=== PATIENT | female | born 1950 | race Caucasian/White ===

== ENCOUNTER 2023-12-11 15:08 | Outpatient (RCR) | payer OTHER, SELFPAY | END 2023-12-11 23:59 | disposition home or self-care (01) | LOC: CRHB 15:08 | PROVIDERS: ATTENDING PHYSICIAN Internal Medicine | DX: Z95.4 Presence of other heart-valve replacement (principal) | CPT/HCPCS: G0422; G0423 ==

== ENCOUNTER → 2023-12-18 12:53 | Outpatient (REF) | payer OTHER, SELFPAY | LOC: DHCBC HW 12:53 | PROVIDERS: ATTENDING PHYSICIAN Internal Medicine; FAMILY PHYSICIAN Physician Assistant Medical | DX: Z95.2 Presence of prosthetic heart valve (principal); I42.8 Other cardiomyopathies; I10 Essential (primary) hypertension; Z98.890 Other specified postprocedural states; I48.0 Paroxysmal atrial fibrillation | CPT/HCPCS: 93306 ==

== ENCOUNTER 2024-01-08 14:59 | Outpatient (RCR) | payer OTHER, SELFPAY | END 2024-01-08 23:59 | disposition home or self-care (01) | LOC: CRHB 14:59 | PROVIDERS: ATTENDING PHYSICIAN Internal Medicine | DX: Z95.4 Presence of other heart-valve replacement (principal) | CPT/HCPCS: G0422; G0423 ==

== ENCOUNTER 2024-02-07 13:18 | Outpatient (RCR) | payer OTHER, SELFPAY | END 2024-02-07 23:59 | disposition home or self-care (01) | LOC: CRHB 13:18 | PROVIDERS: ATTENDING PHYSICIAN Internal Medicine | DX: Z95.4 Presence of other heart-valve replacement (principal) | CPT/HCPCS: G0422; G0423 ==

== ENCOUNTER 2024-02-19 13:56 | Outpatient (RCR) | payer OTHER, SELFPAY | END 2024-02-19 23:59 | disposition home or self-care (01) | LOC: CRHB 13:56 | PROVIDERS: ATTENDING PHYSICIAN Internal Medicine | DX: Z95.4 Presence of other heart-valve replacement (principal) | CPT/HCPCS: G0422; G0423 ==

== ENCOUNTER → 2024-02-21 15:32 | Outpatient (REF) | payer OTHER, SELFPAY | LOC: RCS 15:32 | PROVIDERS: ATTENDING PHYSICIAN Internal Medicine; FAMILY PHYSICIAN Physician Assistant Medical | DX: R06.02 Shortness of breath (principal); R53.83 Other fatigue | CPT/HCPCS: 93308; 93321; 93325 ==

== ENCOUNTER 2024-04-04 15:59 | Emergency (ER) | payer OTHER, SELFPAY ==
[2024-04-04 16:02] VITALS: BP 158/95
--- NOTE | 2024-04-04 16:28 | ED.GENMED ---
History of Present Illness
<Sonia Markham COOPERATIVE MANAGER - Last Filed: 04/05/24 17:30>
General
Chief Complaint: Fever
Source: patient
Exam Limitations: none
Time Seen by Provider: 04/04/24 16:24
Nursing documentation reviewed up to this point in time: agreed with
Travel History
Have you had any contact with someone who has COVID-19?: No
Do you have any symptoms of coronavirus? Fever > 100 degrees, chills, cough, shortness of breath, sore throat, loss of taste or smell, muscle aches, or headache?: No
History of Present Illness
History of Present Illness:
73 yo female w h/o Afib on Eliquis, HTN, HLD, Mitral valve repair and aortic valve replacement 10/2023, TIA, neuropathy, migraines, presents stating she went to Urgent Care yesterday for fever 102.0 and pain under left breast. States CXR showed 'a
shadow' left lower lung and started on Doxycycline for presumptive pneumonia. No lab work done at . Told to go to ER if she felt any worse. Today she felt worse with a short episode of pain on top of left breast as well as the pain under her left
breast.
Patient has had pain across her upper back for 6 weeks, her PCP is aware and told her it was residual from her cardiac surgery done in October. Back pain is unchanged.
Pt denies SOB, abdominal pain. No fever since last night. Took Tylenol today 1:30 p.m.
Past History
<Sonia Markham COOPERATIVE MANAGER - Last Filed: 04/05/24 17:30>
Past History
ED Past Medical History: CHF (Nonischemic cardiomyopathy), CVA (History of TIA), HTN, Hypercholesterolemia, Valvular disease (Moderate to severe aortic insufficiency, severe mitral valve insufficiency.) and Other (Raynaud's disease; osteoarthritis)
ED Past Surgical History: Cardiac (Bioprosthetic aortic valve replacement, mitral valve repair October 15, 2023), and Gynecological
Social History
Tobacco: Non-smoker
Alcohol: None
Drug: None
Personal:
Living: with family
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
Family History
Family History: Other (Noncontributory)
Review of Systems
<Sonia Markham, COOPERATIVE MANAGER - Last Filed: 04/05/24 17:30>
Review of Systems
Allergies reviewed?: Yes
All Other Systems: ROS reviewed and negative except as documented in HPI and ROS
Constitutional: Reports fever (last night, none today)
Respiratory: Denies trouble breathing
Cardiac: Reports chest pain (just under and on top of left breast); Denies diaphoresis, palpitations or syncope
ABD/GI: Denies abdominal pain, nausea, vomiting or diarrhea
: Denies dysuria, frequency, difficulty voiding or urgency
Musculoskeletal: Reports back pain (across upper back 'just above my bra'); Denies edema
Skin: Reports no symptoms
Neurological: Reports no symptoms
Phy Exam
<Sonia Markham, COOPERATIVE MANAGER - Last Filed: 04/05/24 17:30>
Physical Exam
Physical Exam:
GENERAL: No acute distress. A&Ox3.
CONSTITUTIONAL: Afebrile.
EYES: clear, conjunctivae normal
Neck: Supple
ENMT: moist mucus membranes, Pharynx nl
RESPIRATORY: Regular respirations, nonlabored, lungs clear.
CARDIOVASCULAR: Regular rate and rhythm, no murmurs, no rubs.
GI: Soft, nontender, normal BS
MUSCULOSKELETAL: Moves with ease. Well perfused. No edema
SKIN: Warm, dry, pink
PSYCH: Normal mood and affect. Well kept, interactive and appropriate
NEUROLOGIC: Awake, alert and oriented. No focal neurological deficits
Course
<Sonia Markham, COOPERATIVE MANAGER - Last Filed: 04/05/24 17:30>
Orders/Labs/Results
Orders:
Orders
04/04/24 16:06
ECG [Electrocardiogram (*1)] Urgent
Reason for Study: Chest Pain
EKG- Treatment ONCE
04/04/24 17:01
Basic Metabolic Panel Urgent
Complete Blood Count/With Diff Urgent
Troponin I Urgent
04/04/24 17:37
0.9% Sodium Chloride 1000 ml [Nss] 1,000 ml IV BOLUS
04/04/24 17:56
Acetaminophen [Tylenol] 1,000 mg PO NOW STA
04/04/24 18:02
EKG [Electrocardiogram (*1)] Urgent
Reason for Study: Chest Pain
04/04/24 18:03
EKG- Treatment ONCE
04/04/24 18:18
CT Chest Pe Study Urgent
Comment:
Reason For Exam: cp, recent cardiac surgery
Abnormal Lab Results
04/04/24
17:01
Absolute Neuts (auto) 9.2 H 10^3/uL
(1.4-6.5)
Absolute Lymphs (auto) 0.8 L 10^3/uL
(1.2-3.4)
Absolute Monos (auto) 0.7 H 10^3/uL
(0.1-0.6)
Neutrophils % 85.9 H %
(42.2-75.2)
Lymphocytes % 7.3 L %
(20.5-51.1)
BUN 27 H mg/dl
(7-17)
Glucose 108 H mg/dl
(70-99)
Troponin I 0.036 H* ng/ml
04/04/24 17:01
04/04/24 17:01
Vital Signs
Initial and Last Documented VS:
Initial Vital Signs
Temp Pulse Resp BP Pulse Ox
99.4 F 104 20 158/95 98
05/25/24 16:02 04/04/24 16:02 04/04/24 16:02 04/04/24 16:02 04/04/24 16:02
Last Documented Vital Signs
Temp Pulse Resp BP Pulse Ox
99.5 F 92 22 128/82 94
04/04/24 21:26 04/04/24 20:15 04/04/24 20:15 04/04/24 20:00 04/04/24 20:15
Kennel Attendant consulted with Physician
Kennel Attendant consulted with physician?: Yes
Name of Physician Consulted: Elaina
<Sung De La Cruz, DO - Last Filed: 04/04/24 21:01>
Orders/Labs/Results
Orders:
Orders
04/04/24 16:06
ECG [Electrocardiogram (*1)] Urgent
Reason for Study: Chest Pain
EKG- Treatment ONCE
04/04/24 17:01
Basic Metabolic Panel Urgent
Complete Blood Count/With Diff Urgent
Troponin I Urgent
04/04/24 17:37
0.9% Sodium Chloride 1000 ml [Nss] 1,000 ml IV BOLUS
04/04/24 17:56
Acetaminophen [Tylenol] 1,000 mg PO NOW STA
04/04/24 18:02
EKG [Electrocardiogram (*1)] Urgent
Reason for Study: Chest Pain
04/04/24 18:03
EKG- Treatment ONCE
04/04/24 18:18
CT Chest Pe Study Urgent
Comment:
Reason For Exam: cp, recent cardiac surgery
Abnormal Lab Results
04/04/24
17:01
Absolute Neuts (auto) 9.2 H 10^3/uL
(1.4-6.5)
Absolute Lymphs (auto) 0.8 L 10^3/uL
(1.2-3.4)
Absolute Monos (auto) 0.7 H 10^3/uL
(0.1-0.6)
Neutrophils % 85.9 H %
(42.2-75.2)
Lymphocytes % 7.3 L %
(20.5-51.1)
BUN 27 H mg/dl
(7-17)
Glucose 108 H mg/dl
(70-99)
Troponin I 0.036 H* ng/ml
04/04/24 17:01
04/04/24 17:01
Vital Signs
Initial and Last Documented VS:
Initial Vital Signs
Temp Pulse Resp BP Pulse Ox
99.4 F 104 20 158/95 98
04/04/24 16:02 04/04/24 16:02 04/04/24 16:02 04/04/24 16:02 04/04/24 16:02
Last Documented Vital Signs
Temp Pulse Resp BP Pulse Ox
99.5 F 92 22 128/82 94
04/04/24 21:26 04/04/24 20:15 04/04/24 20:15 04/04/24 20:00 04/04/24 20:15
<Sonia Markham COOPERATIVE MANAGER - Last Filed: 04/05/24 17:30>
MDM/Problems Addressed
Differential Diagnosis Includes:
FL, post op/musculoskeletal pain, PNA, costochondritis, pleuritis
MDM/Problems Addressed:
73 yo female w h/o Afib on Eliquis, HTN, HLD, Mitral valve repair and aortic valve replacement 10/2023, TIA, neuropathy, migraines, presents stating she went to Urgent Care yesterday for fever 102.0 and pain under left breast. States CXR showed 'a
shadow' left lower lung and started on Doxycycline for presumptive pneumonia. No lab work done at . Told to go to ER if she felt any worse. Today she felt worse with a short episode of pain on top of left breast as well as the pain under her left
breast.
Patient has had pain across her upper back for 6 weeks, her PCP is aware and told her it was residual from her cardiac surgery done in October. Back pain is unchanged.
Pt denies SOB, abdominal pain. No fever since last night. Took Tylenol today 1:30 p.m.
Afebrile, NAD
EKG: Sinus rhythm with occasional PVC
Reviewed radiology report from CXR yesterday: IMPRESSION:
Mild left basilar subsegmental atelectasis and/or scarring and possible tiny left pleural effusion.
5:45 p.m.
CBC no clinically significant abnormality
CMP: BUN 27 otherwise normal IVF's ordered for mild dehydration
Troponin:0.036 minimally elevated
Pain is reproducible with palpation, she jumps and winces intermittently and grabs her left breast area due to pain, most likely musculoskeletal pain/pleuritic pain. Tylenol ordered as she states it helped the pain earlier
Plan: Repeat CXR, repeat Troponin
6:10 p.m.
Pt states left breast, chest pain is worse, her Tylenol has worn off. Tylenol ordered as she states it helped the pain earlier
Repeat EKG: Sinus tachycardia rate 102
Plan: Continue Doxycycline and other meds.
Has f/u appointment with cardiology in 5 days.
Tylenol as needed for pain.
Case reviewed with Dr. De La Cruz who will assume care from this point
<Sonia Markham NP - Last Filed: 04/05/24 17:30>
*EKG
EKG Intrepretation Date: 04/04/24
Interpretation: abnormal
Rate: normal
Rhythm: sinus and PVC's
Waldo: normal axis
Interval: normal interval
QRS Pattern: normal QRS
Ischemia: no ischemia
*Critical Care Note
Total Time (30-74mins, 75-104mins- exclusive of procedures): Not Applicable
ED Attending Note
<Sonia Markham NP - Last Filed: 04/05/24 17:30>
-
Portions of this chart may have been created with voice recognition software.� Occasional wrong word or��sound alike� substitutions may have occurred due to the inherent limitations of voice recognition software.
<Sung De La Cruz DO - Last Filed: 04/04/24 21:01>
ED Attending Note
Patient seen and examined by attending physician: Yes
I performed the substantive portion of visit, reviewed & personally made and approve the management plan that is documented in note by myself or LOUISE.: Yes
ED Attending Note:
73-year-old female with history of valve replacement and repair who presents with left-sided pleuritic pain. CT shows no PE. Is on Eliquis. There is a small effusion and atelectasis. Will trial incentive spirometry. Already on antibiotics which
I will advise her to continue and finish. Outpatient follow-up recommended. Suspect her pain is related to atelectasis and effusion
Discharge Plan
Departure
Patient Disposition: Home (Routine Discharge)
Date of Disposition: 04/04/24
Time of Disposition: 20:58
Patient with high blood pressure during this ER visit?: No
Discharge Problem:
Pleural effusion, Pleuritic chest pain
Instructions: Pleural effusion, Pleuritic Chest Pain (DC)
Prescriptions:
No Action
Centrum Silver 1 EACH tablet
1 ea PO DAILY
turmeric root extract 500 MG capsule
1,000 mg PO DAILY
ezetimibe [Zetia] 10 mg tablet
10 mg PO QPM
Eliquis 5 mg tablet
5 mg PO BID Qty: 60 1RF
cyanocobalamin (vitamin B-12) 1,000 mcg Tablet
1,000 mcg PO DAILY
acetaminophen [Tylenol Extra Strength] 500 mg Tablet
1,000 mg PO Q6HPRN PRN (Reason: mild pain)
gabapentin 100 mg Capsule
100 mg PO HS
doxycycline hyclate 100 mg Tablet
100 mg PO BID
Referrals:
Rik Apple PA-C [Family Provider] -
Activity Restrictions/Additional Instructions:
Please see your doctor in the next 3 to 5 days for follow-up and reevaluation
Return to [facility] for shortness of breath, fevers, vomiting or worsening symptoms.
Interventions
Interventions:
*Risk Screen - Suicide Last Done: 04/04/24 21:27
*General Assessment Last Done: 04/04/24 21:27
*Neglect/Abuse Screening Last Done: 04/04/24 21:27
*ED COVID-19 Vaccine History Last Done: 04/04/24 21:27
*Nursing Disposition Last Done: 04/04/24 22:23
ED- Neurological Assessment Last Done: 04/04/24 16:37
ED-Skin Assessment Last Done: 04/04/24 16:37
Discharge Date and Time
Discharge Date/Time: 04/04/24 22:27
Print Language: GREENLANDIC
[2024-04-04 17:07] LABS: % Basophils 0.3 % (0-2); % Eosinophils 0.1 % (0-6); % Immature Granulocytes 0.2 % (0-0.5); % Lymphocytes 7.3 % (20.5-51.1); % Monocytes 6.2 % (1.7-9.3); % Neutrophils 85.9 % (42.2-75.2); Absolute Lymphocytes 0.8 10^3/uL (1.2-3.4); Absolute Monocytes 0.7 10^3/uL (0.1-0.6); Absolute Neutrophils 9.2 10^3/uL (1.4-6.5); Mean Corp Hgb Conc. 34.2 g/dL (33.0-37.0); Mean Corpuscular Hgb 29.8 pg (27.0-31.0); Mean Corpuscular Volume 87.2 fL (81.0-99.0); Nucleated Red Blood Cells % 0 %; Platelet Count 203 10^3/uL (130-400); Red Blood Cell Count 4.36 10^6/uL (4.20-5.40); Red Cell Dist. Width 13.7 % (11.5-14.5); White Blood Cell Count 10.7 10^3/uL (4.8-10.8)
[2024-04-04 17:21] LABS: Blood Urea Nitrogen 27 mg/dl (7-17); Calcium 9.4 mg/dl (8.4-10.2); Carbon Dioxide 23 mmol/L (22-30); Chloride 104 mmol/L (98-107); Glucose 108 mg/dl (70-99); Sodium 136 mmol/L (135-145); eGFR > 60.00
[2024-04-04 17:48] LABS: Troponin I 0.036 ng/ml
[2024-04-04] MEDS: NSS 1000 IV (17:52)
[2024-04-04] MEDS: TYLENOL 1000 MG PO (17:59)
[2024-04-04 18:53] VITALS: BP 146/89
[2024-04-04 19:01] VITALS: BP 143/92
[2024-04-04 20:00] VITALS: BP 128/82
== END 2024-04-04 22:27 | disposition home or self-care (01) ==
LOC: EMR 15:59
PROVIDERS: Registered Nurse; EMERGENCY PHYSICIAN Emergency Medicine; FAMILY PHYSICIAN Physician Assistant Medical
DX: J90 Pleural effusion, not elsewhere classified (principal); R07.81 Pleurodynia; R50.9 Fever, unspecified; I11.0 Hypertensive heart disease with heart failure; I50.9 Heart failure, unspecified; E78.00 Pure hypercholesterolemia, unspecified; I49.3 Ventricular premature depolarization; I73.00 Raynaud's syndrome without gangrene; M19.90 Unspecified osteoarthritis, unspecified site; Z79.01 Long term (current) use of anticoagulants; Z86.73 Personal history of transient ischemic attack (TIA), and cerebral infarction without residual deficits; Z95.3 Presence of xenogenic heart valve
CPT/HCPCS: 99284; 96360; 71275; 80048; 84484; 85025; 93005; Q9967

== ENCOUNTER → 2024-04-24 10:00 | Outpatient (REF) | payer OTHER, SELFPAY | LOC: RAD 10:00 | PROVIDERS: ATTENDING PHYSICIAN Physician Assistant Medical; REFERRING PHYSICIAN Internal Medicine | DX: I38 Endocarditis, valve unspecified (principal); J18.9 Pneumonia, unspecified organism | CPT/HCPCS: 71046 ==

== ENCOUNTER 2024-04-27 14:11 | Emergency (ER) | payer OTHER, SELFPAY ==
[2024-04-27 14:14] VITALS: BP 154/100
[2024-04-27 15:44] VITALS: BP 149/91
[2024-04-27] MEDS: TYLENOL 1000 MG PO (15:56)
[2024-04-27 16:00] VITALS: BP 139/89
[2024-04-27 16:05] LABS: % Basophils 0.4 % (0-2); % Eosinophils 0.1 % (0-6); % Immature Granulocytes 0.3 % (0-0.5); % Monocytes 6.5 % (1.7-9.3); % Neutrophils 82.7 % (42.2-75.2); Absolute Lymphocytes 1.1 10^3/uL (1.2-3.4); Absolute Monocytes 0.7 10^3/uL (0.1-0.6); Absolute Neutrophils 8.6 10^3/uL (1.4-6.5); Hemoglobin 12.8 g/dL (12.0-16.0); Mean Corp Hgb Conc. 34.6 g/dL (33.0-37.0); Mean Corpuscular Hgb 30.4 pg (27.0-31.0); Mean Corpuscular Volume 87.9 fL (81.0-99.0); Mean Platelet Volume 10.1 fL (7.4-10.4); Nucleated Red Blood Cells % 0 %; Platelet Count 156 10^3/uL (130-400); Red Blood Cell Count 4.21 10^6/uL (4.20-5.40); Red Cell Dist. Width 14.2 % (11.5-14.5); White Blood Cell Count 10.5 10^3/uL (4.8-10.8)
[2024-04-27 16:18] LABS: ALT (SGPT) 35 U/L (0-35); AST (SGOT) 38 U/L (14-36); Albumin 3.8 g/dl (3.5-5.0); Alkaline Phosphatase 84 U/L (38-126); Blood Urea Nitrogen 19 mg/dl (7-17); Calcium 9.4 mg/dl (8.4-10.2); Carbon Dioxide 24 mmol/L (22-30); Chloride 102 mmol/L (98-107); Glucose 105 mg/dl (70-99); Potassium 4.6 mmol/L (3.5-5.1); Sodium 135 mmol/L (135-145); Total Bilirubin 0.9 mg/dl (0.2-1.3); Total Protein 6.7 g/dl (6.3-8.2); eGFR > 60.00
[2024-04-27] MEDS: ZITHROMAX 500 MG PO (17:44)
[2024-04-27 17:45] VITALS: BP 116/82
--- NOTE | 2024-04-27 21:31 | ED.GENMED ---
History of Present Illness
General
Chief Complaint: Cold/Flu/URI Symptoms
Source: patient
Exam Limitations: none
Time Seen by Provider: 04/27/24 14:52
Nursing documentation reviewed up to this point in time: agreed with
Travel History
Have you had any contact with someone who has COVID-19?: Yes
Comment: positive
Do you have any symptoms of coronavirus? Fever > 100 degrees, chills, cough, shortness of breath, sore throat, loss of taste or smell, muscle aches, or headache?: Yes
Symptoms:: positive
History of Present Illness
History of Present Illness:
Patient was seen by PCP today for fever, fatigue. She tested COVID pos in office and was advised to come to ED. On arrival she is awake and alert, in no distress.
Past History
Past History
ED Past Medical History: CHF (Nonischemic cardiomyopathy), CVA (History of TIA), HTN, Hypercholesterolemia, Valvular disease (Moderate to severe aortic insufficiency, severe mitral valve insufficiency.) and Other (Raynaud's disease; osteoarthritis)
ED Past Surgical History: Cardiac (Bioprosthetic aortic valve replacement, mitral valve repair October 15, 2023), and Gynecological
Social History
Tobacco: Non-smoker
Alcohol: None
Drug: None
Personal:
Living: with family
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
Family History
Family History: Other (Noncontributory)
Review of Systems
Review of Systems
Allergies reviewed?: Yes
All Other Systems: ROS reviewed and negative except as documented in HPI and ROS
Constitutional: Reports fever and fatigue
EENT: Reports no symptoms
Respiratory: Reports no symptoms
Cardiac: Reports no symptoms
ABD/GI: Reports no symptoms
: Reports no symptoms
Musculoskeletal: Reports no symptoms
Skin: Reports no symptoms
Neurological: Reports no symptoms
Psychiatric: Reports no symptoms
Phy Exam
General Physical Exam
General Presentation: well appearing and no apparent distress
General age: appears stated age
General Skin: warm and dry
General Habitus: normal
General Mental: alert
General Hydration: appears well hydrated
Cardiovascular Exam
Cardiovascular Exam: regular rate/rhythm and no edema
Pulmonary Exam
Pulmonary Exam: lungs clear and no respiratory distress
Gastrointestinal Exam
Gastrointestinal Exam: normal bowel sounds, non tender, soft and no organomegaly
Neurological Exam
Neurological Exam: alert, oriented x3, CN II-XII intact, no motor deficits, no sensory deficits, speech normal and normal gait
Musculoskeletal Exam
Musculoskeletal Exam: full ROM and neuro vasc intact
Skin Exam
Skin Exam: normal color, warm/dry and no rash
Psychiatric Exam
Psychiatric Exam: normal mood/affect
Course
Orders/Labs/Results
Orders:
Orders
04/27/24 15:46
Acetaminophen [Tylenol] 1,000 mg PO NOW STA
04/27/24 15:47
Chest [CR Chest - 2 Views ] Urgent
Comment: covid +
Reason For Exam: cough
04/27/24 15:56
CBC/With Diff [Complete Blood Count/With Diff] Urgent
CMP [Comprehensive Metabolic Panel] Urgent
04/27/24 15:58
EKG [Electrocardiogram (*1)] Urgent
Reason for Study: Tachycardia
04/27/24 15:59
EKG- Treatment ONCE
04/27/24 17:27
Azithromycin [Zithromax] 500 mg PO NOW STA
Abnormal Lab Results
04/27/24
15:56
Absolute Neuts (auto) 8.6 H 10^3/uL
(1.4-6.5)
Absolute Lymphs (auto) 1.1 L 10^3/uL
(1.2-3.4)
Absolute Monos (auto) 0.7 H 10^3/uL
(0.1-0.6)
Neutrophils % 82.7 H %
(42.2-75.2)
Lymphocytes % 10.0 L %
(20.5-51.1)
BUN 19 H mg/dl
(7-17)
Glucose 105 H mg/dl
(70-99)
AST 38 H U/L
(14-36)
04/27/24 15:56
04/27/24 15:56
Vital Signs
Initial and Last Documented VS:
Initial Vital Signs
Temp Pulse Resp BP Pulse Ox
101.5 F H 104 18 154/100 98
04/27/24 14:14 04/27/24 14:14 04/27/24 14:14 04/27/24 14:14 04/27/24 14:14
Last Documented Vital Signs
Temp Pulse Resp BP Pulse Ox
101.5 F H 104 18 116/82 95
04/27/24 14:14 04/27/24 14:14 04/27/24 14:14 04/27/24 17:45 04/27/24 16:12
*Radiology
Radiology exam reviewed: radiology read reviewed
*Pulse Oximetry
Patient hypoxic: no
*Critical Care Note
Total Time (30-74mins, 75-104mins- exclusive of procedures): Not Applicable
Update Note
Update Note:
Patient remains awake and alert, nontoxic appearing. Pulse ox 96% on RA. No SOb or cough. No episodes of hypotension in ED. Eating and drinking. CXR with small pneumonial vs effusion with atelectasis. WIll place on Azithromycin, first dose
given in dept. SHe is discharged home, to follow closely with PCP. Given instructions on s/s to return to ED and she is agreeable to plan.
ED Attending Note
-
Portions of this chart may have been created with voice recognition software.� Occasional wrong word or��sound alike� substitutions may have occurred due to the inherent limitations of voice recognition software.
Discharge Plan
Departure
Patient Disposition: Home (Routine Discharge)
Date of Disposition: 04/27/24
Time of Disposition: 17:18
Patient with high blood pressure during this ER visit?: No
Condition: Good
Covid-19: Not Applicable
Discharge Problem:
COVID-19
Instructions: Fever, Adult (DC), Atypical Pneumonia (Mycoplasma and Viral) (DC), Coronavirus Home Quarantine
Prescriptions:
New
azithromycin [Zithromax] 250 mg tablet
250 mg PO DAILY Qty: 4 0RF
No Action
Centrum Silver 1 EACH tablet
1 ea PO DAILY
turmeric root extract 500 MG capsule
1,000 mg PO DAILY
ezetimibe [Zetia] 10 mg tablet
10 mg PO QPM
Eliquis 5 mg tablet
5 mg PO BID Qty: 60 1RF
cyanocobalamin (vitamin B-12) 1,000 mcg Tablet
1,000 mcg PO DAILY
acetaminophen [Tylenol Extra Strength] 500 mg Tablet
1,000 mg PO Q6HPRN PRN (Reason: mild pain)
gabapentin 100 mg Capsule
100 mg PO HS
doxycycline hyclate 100 mg Tablet
100 mg PO BID
Referrals:
Manuel Santoyo MD [Family Provider] - Follow up in 2-3 days
Interventions
Interventions:
*Risk Screen - Suicide Last Done: 04/27/24 14:14
*General Assessment Last Done: 04/27/24 14:14
*Neglect/Abuse Screening Last Done: 04/27/24 14:14
ED- Fall Risk Assessment Last Done: 04/27/24 15:57
*ED COVID-19 Vaccine History Last Done: 04/27/24 14:14
*Nursing Disposition Last Done: 04/27/24 18:00
ED- Pulmonary Assessment Last Done: 04/27/24 15:57
Discharge Date and Time
Discharge Date/Time: 04/27/24 18:38
Print Language: CENTRAL [place]
== END 2024-04-27 18:38 | disposition home or self-care (01) ==
LOC: EMR 14:11
PROVIDERS: Nurse Practitioner; EMERGENCY PHYSICIAN Emergency Medicine; FAMILY PHYSICIAN Family Medicine
DX: U07.1 COVID-19 (principal); I42.8 Other cardiomyopathies; I10 Essential (primary) hypertension; E78.00 Pure hypercholesterolemia, unspecified; I08.0 Rheumatic disorders of both mitral and aortic valves; I73.00 Raynaud's syndrome without gangrene; M19.90 Unspecified osteoarthritis, unspecified site; G43.909 Migraine, unspecified, not intractable, without status migrainosus; I48.91 Unspecified atrial fibrillation; Z79.01 Long term (current) use of anticoagulants; Z95.3 Presence of xenogenic heart valve; Z86.73 Personal history of transient ischemic attack (TIA), and cerebral infarction without residual deficits; Z87.01 Personal history of pneumonia (recurrent); Z88.8 Allergy status to other drugs, medicaments and biological substances
CPT/HCPCS: 99283; 71046; 80053; 85025; 93005

== ENCOUNTER → 2024-06-09 10:11 | Outpatient (REF) | payer OTHER, SELFPAY | LOC: RAD 10:11 | PROVIDERS: ATTENDING PHYSICIAN Nurse Practitioner Family; FAMILY PHYSICIAN Physician Assistant Medical | DX: Z87.01 Personal history of pneumonia (recurrent) (principal); J90 Pleural effusion, not elsewhere classified | CPT/HCPCS: 71046 ==

== ENCOUNTER → 2024-09-29 07:20 | Outpatient (REF) | payer OTHER, SELFPAY | LOC: HWRCS 07:20 | PROVIDERS: ATTENDING PHYSICIAN Nurse Practitioner; FAMILY PHYSICIAN Physician Assistant Medical | DX: Z95.2 Presence of prosthetic heart valve (principal); I42.8 Other cardiomyopathies; I10 Essential (primary) hypertension; Z98.890 Other specified postprocedural states; R06.02 Shortness of breath; I95.89 Other hypotension; I48.0 Paroxysmal atrial fibrillation | CPT/HCPCS: 71046; 93306 ==

== ENCOUNTER 2024-12-08 08:22 | Outpatient (RCR) | payer OTHER, SELFPAY | END 2024-12-08 23:59 | disposition home or self-care (01) | LOC: RPT 08:22 | PROVIDERS: ATTENDING PHYSICIAN Physician Assistant Medical | DX: I95.9 Hypotension, unspecified (principal); R53.81 Other malaise; Z73.6 Limitation of activities due to disability; M62.81 Muscle weakness (generalized); R26.89 Other abnormalities of gait and mobility; R25.1 Tremor, unspecified; Z86.16 Personal history of COVID-19; Z86.73 Personal history of transient ischemic attack (TIA), and cerebral infarction without residual deficits | CPT/HCPCS: 97110; 97161 ==

== ENCOUNTER 2025-01-07 14:01 | Outpatient (RCR) | payer OTHER, SELFPAY | END 2025-01-07 23:59 | disposition home or self-care (01) | LOC: RPT 14:01 | PROVIDERS: ATTENDING PHYSICIAN Physician Assistant Medical | DX: I95.9 Hypotension, unspecified (principal); R53.81 Other malaise; Z73.6 Limitation of activities due to disability; M62.81 Muscle weakness (generalized); R26.89 Other abnormalities of gait and mobility; R26.2 Difficulty in walking, not elsewhere classified; R25.1 Tremor, unspecified; Z86.16 Personal history of COVID-19; Z86.73 Personal history of transient ischemic attack (TIA), and cerebral infarction without residual deficits | CPT/HCPCS: 97110; 97112; 97530 ==

== ENCOUNTER 2025-02-04 13:51 | Outpatient (RCR) | payer OTHER, SELFPAY | END 2025-02-04 23:59 | disposition home or self-care (01) | LOC: RPT 13:51 | PROVIDERS: ATTENDING PHYSICIAN Physician Assistant Medical | DX: I95.9 Hypotension, unspecified (principal); R53.81 Other malaise; Z73.6 Limitation of activities due to disability; M62.81 Muscle weakness (generalized); R26.89 Other abnormalities of gait and mobility; R25.1 Tremor, unspecified; R26.2 Difficulty in walking, not elsewhere classified; M54.2 Cervicalgia; M54.6 Pain in thoracic spine; Z86.73 Personal history of transient ischemic attack (TIA), and cerebral infarction without residual deficits; Z86.16 Personal history of COVID-19 | CPT/HCPCS: 97110; 97112 ==

== ENCOUNTER 2025-02-24 13:02 | Outpatient (RCR) | payer OTHER, SELFPAY | END 2025-02-24 23:59 | disposition home or self-care (01) | LOC: RPT 13:02 | PROVIDERS: ATTENDING PHYSICIAN Physician Assistant Medical | DX: I95.9 Hypotension, unspecified (principal); R53.81 Other malaise; Z73.6 Limitation of activities due to disability; M62.81 Muscle weakness (generalized); R26.89 Other abnormalities of gait and mobility; R25.1 Tremor, unspecified; M54.2 Cervicalgia; M54.6 Pain in thoracic spine; R26.2 Difficulty in walking, not elsewhere classified; Z86.16 Personal history of COVID-19; Z86.73 Personal history of transient ischemic attack (TIA), and cerebral infarction without residual deficits | CPT/HCPCS: 97110 ==

== ENCOUNTER 2025-03-11 13:24 | Outpatient (RCR) | payer OTHER, SELFPAY | END 2025-03-11 23:59 | disposition home or self-care (01) | LOC: RPT 13:24 | PROVIDERS: ATTENDING PHYSICIAN Physician Assistant Medical | DX: I95.9 Hypotension, unspecified (principal); R53.81 Other malaise; Z73.6 Limitation of activities due to disability; M62.81 Muscle weakness (generalized); R26.89 Other abnormalities of gait and mobility; R25.1 Tremor, unspecified; M54.2 Cervicalgia; M54.6 Pain in thoracic spine; R26.2 Difficulty in walking, not elsewhere classified; Z86.16 Personal history of COVID-19; Z86.73 Personal history of transient ischemic attack (TIA), and cerebral infarction without residual deficits | CPT/HCPCS: 97110; 97112 ==

== ENCOUNTER 2025-04-16 11:00 | Outpatient (RCR) | payer OTHER, SELFPAY | END 2025-04-16 13:57 | disposition home or self-care (01) | LOC: RPT 11:00 | PROVIDERS: ATTENDING PHYSICIAN Physician Assistant Medical | DX: I95.9 Hypotension, unspecified (principal); R53.81 Other malaise; Z73.6 Limitation of activities due to disability; M62.81 Muscle weakness (generalized); R26.89 Other abnormalities of gait and mobility; R25.1 Tremor, unspecified; M54.2 Cervicalgia; M54.6 Pain in thoracic spine; R26.2 Difficulty in walking, not elsewhere classified; Z86.16 Personal history of COVID-19; Z86.73 Personal history of transient ischemic attack (TIA), and cerebral infarction without residual deficits | CPT/HCPCS: 97110; 97112 ==

== ENCOUNTER → 2025-05-20 17:24 | Outpatient (REF) | payer OTHER, SELFPAY | LOC: RCS 17:24 | PROVIDERS: ATTENDING PHYSICIAN Nurse Practitioner Acute Care; FAMILY PHYSICIAN Physician Assistant Medical | DX: Z98.890 Other specified postprocedural states (principal); Z01.810 Encounter for preprocedural cardiovascular examination; Z95.2 Presence of prosthetic heart valve | CPT/HCPCS: 93306 ==

== ENCOUNTER → 2025-07-09 12:35 | Outpatient (REF) | payer OTHER, SELFPAY | LOC: HWRAD 12:35 | PROVIDERS: ATTENDING PHYSICIAN Physician Assistant Medical | DX: M25.562 Pain in left knee (principal) | CPT/HCPCS: 73564 ==

== ENCOUNTER 2025-10-05 09:39 | Outpatient (RCR) | payer OTHER, SELFPAY | END 2025-10-05 23:59 | disposition home or self-care (01) | LOC: RST 09:39 | PROVIDERS: ATTENDING PHYSICIAN Psychiatry & Neurology Neurology; FAMILY PHYSICIAN Physician Assistant Medical | DX: G20.A1 Parkinson's disease without dyskinesia, without mention of fluctuations (principal); Z73.6 Limitation of activities due to disability; R26.89 Other abnormalities of gait and mobility; G62.9 Polyneuropathy, unspecified | CPT/HCPCS: 92522; 97110; 97112; 97163; 97167; 97530; 97537 ==

== ENCOUNTER → 2025-11-05 14:28 | Outpatient (REF) | payer OTHER, SELFPAY | LOC: PAVMRI 14:28 | PROVIDERS: ATTENDING PHYSICIAN Student in an Organized Health Care Education/Training Program; FAMILY PHYSICIAN Physician Assistant Medical | DX: M23.42 Loose body in knee, left knee (principal); M25.562 Pain in left knee | CPT/HCPCS: 73721 ==

== ENCOUNTER 2025-11-10 07:25 | Outpatient (RCR) | payer OTHER, SELFPAY | END 2025-11-10 23:59 | disposition home or self-care (01) | LOC: RST 07:25 | PROVIDERS: ATTENDING PHYSICIAN Psychiatry & Neurology Neurology; FAMILY PHYSICIAN Physician Assistant Medical | DX: G20.A1 Parkinson's disease without dyskinesia, without mention of fluctuations (principal); Z73.6 Limitation of activities due to disability; R26.89 Other abnormalities of gait and mobility; G62.9 Polyneuropathy, unspecified | CPT/HCPCS: 97110; 97112; 97116; 97530; 97535; 97537 ==